=== PATIENT | male | born 1970 ===

== ENCOUNTER 2017-09-09 21:49 | Emergency (ER) | payer MEDICARE ==
--- NOTE | 2017-09-09 21:52 | ED PDOC ---
Arrival/HPI - General Time Seen by Provider: 09/09/17 21:51 Historian: Patient - History of Present Illness Narrative History of Present Illness (Text): 09/09/17 21:52 47 year old male, whose past medical history includes substance abuse(heroin), right prosthetic eye, and Hepatitis C, presents to the Emergency department by ambulance and [facility] foropioid overdose 2 hours ago. As per EMS, patient reportedly sniffed heroin intranasally. Prior to arrival, patient was shaking, but became responsive after Narcan was administered by EMS. Patient reports a history of seizures when he was younger. Patient denies any other drug or alcohol use. Patient denies any tongue biting, fevers, chills, chest pain, shortness of breath, abdominal pain, nausea, vomiting, diarrhea, back pain, neck pain, urinary incontinence, urinary symptoms, headache, dizziness, or any other complaint. Time/Duration: Other (2 hours) Symptom Onset: Gradual Activities at Onset: Light Past Medical History - Provider Review Nursing Documentation Reviewed: Yes - Cardiac Hx Hypertension: No - Pulmonary Hx Tuberculosis: No (Patient denied) - Neurological Hx Seizures: No - HEENT Hx Blind: Yes (R eye (prosthetic)) - Hematological/Oncological Hx Cancer: No (Patient denied) - Musculoskeletal/Rheumatological Hx Falls: No - Genitourinary/Gynecological Hx Sexually Transmitted Diseases: No - Psychiatric Hx Substance Use: Yes - Surgical History Other/Comment: R eye enucleation - Anesthesia Hx Anesthesia: Yes Hx Anesthesia Reactions: No Family/Social History - Physician Review Nursing Documentation Reviewed: Yes Family/Social History: No Known Family HX Smoking Status: Heavy Smoker > 10 Cigarettes Daily Hx Alcohol Use: No Hx Substance Use: Yes Substance used: heroin Allergies/Home Meds Allergies/Adverse Reactions: Allergies No Known Allergies Allergy (Verified 09/09/17 21:58) Review of Systems - Physician Review All systems were reviewed & negative as marked: Yes - Review of Systems Constitutional: absent: Fevers, Other (Chills) ENT: absent: Other (tongue biting) Respiratory: absent: SOB Cardiovascular: absent: Chest Pain Gastrointestinal: absent: Diarrhea, Nausea, Vomiting Genitourinary Male: absent: Dysuria, Frequency, Hematuria, Other (urinary incontinence) Musculoskeletal: absent: Back Pain, Neck Pain Neurological: Seizure. absent: Headache, Dizziness Physical Exam Vital Signs Reviewed: Yes Vital Signs Pulse Resp BP Pulse Ox 09/09/17 21:59 110 H 19 145/98 H 100 Temperature: Afebrile Blood Pressure: Normal Pulse: Tachycardic Respiratory Rate: Normal Appearance: Positive for: Well-Appearing, Non-Toxic, Comfortable Pain Distress: None Mental Status: Positive for: Alert and Oriented X 3 - Systems Exam Head: Present: Atraumatic, Normocephalic Pupils: Present: Non-Reactive (Right eye non-reactive pupil. (Glass eye)), Other (Left eye reactive) Extroacular Muscles: Present: EOMI Conjunctiva: Present: Normal Mouth: Present: Moist Mucous Membranes, Other (No tongue biting) Pharnyx: Present: Normal. No: ERYTHEMA Neck: Present: Normal Range of Motion Respiratory/Chest: Present: Clear to Auscultation, Good Air Exchange. No: Respiratory Distress, Accessory Muscle Use Cardiovascular: Present: Regular Rate and Rhythm, Normal S1, S2. No: Murmurs Abdomen: No: Tenderness, Distention, Peritoneal Signs Back: Present: Normal Inspection Upper Extremity: Present: Normal Inspection. No: Cyanosis, Edema Lower Extremity: Present: Normal Inspection. No: Edema Neurological: Present: GCS=15, CN II-XII Intact, Speech Normal, Motor Func Grossly Intact, Normal Sensory Function Skin: Present: Warm, Dry, Normal Color. No: Rashes Psychiatric: Present: Alert, Oriented x 3, Normal Insight, Normal Concentration Medical Decision Making ED Course and Treatment: 09/09/17 21:52 Impression: 47 year old male presents for opioid overdose. Patient was noticed to be shaking with decorticate posturing prior to arrival. Differential Diagnosis included but are not limited to: Opioid overdose Plan: -- CT Head w/o Contrast -- Labs -- Reassess and disposition Progress Notes: 09/09/17 23:53 Patient was placed on PO potassium chloride. EXAM:CT Head Without Intravenous Contrast Dictated and Authenticated by: Jamey Urbina MD 09/09/2017 11:23 PM IMPRESSION: Normal head/brain CT. 09/09/17 23:58 On re-evaluation, patient denies any repository distress with no current seizure activity. Patient states he wants to go home. Patient feels better and is in no acute distress. I have discussed the results and plan with the patient , who expresses understanding. Patient in agreement with plan to be discharged home. Patient is stable for discharge. Patient was instructed to follow up with physician or return if symptoms worsen or new concerning symptoms arise. - Lab Interpretations Lab Results: 09/09/17 22:06 09/09/17 22:06 Lab Results 09/09/17 22:06: Alcohol, Quantitative < 10 09/09/17 22:06: Salicylates < 1 L, Acetaminophen < 10.0 L 09/09/17 22:06: Sodium 143, Potassium 3.1 L, Chloride 101, Carbon Dioxide 25, Anion Gap 20, BUN 14, Creatinine 1.3, Est GFR ( Amer) > 60, Est GFR (Non- Af Amer) 60, Random Glucose 243 H, Calcium 8.9, Magnesium 2.0, Total Bilirubin 0.3, AST 39, ALT 37, Alkaline Phosphatase 67, Total Protein 7.8, Albumin 4.5, Globulin 3.3, Albumin/Globulin Ratio 1.3 09/09/17 22:06: WBC 14.0 H, RBC 4.37, Hgb 13.3 L, Hct 38.6 L, MCV 88.3, MCH 30.4 , MCHC 34.5, RDW 12.5, Plt Count 265, MPV 9.4, Gran % 35.5 L, Lymph % (Auto) 57.8 H, Cloud % (Auto) 5.9, Eos % (Auto) 0.6 L, Baso % (Auto) 0.2, Gran # 4.98, Lymph # (Auto) 8.1 H, Cloud # (Auto) 0.8 H, Eos # (Auto) 0.1, Baso # (Auto) 0.03 I have reviewed the lab results: Yes - RAD Interpretation Radiology Orders: 09/09/17 21:54 HEAD W/O CONTRAST [CT] Stat - Medication Orders Current Medication Orders: Discontinued Medications Potassium Chloride (K-Dur 20 Meq Er Tab) 40 meq PO STAT STA Stop: 09/09/17 22:28 Last Admin: 09/09/17 23:59 Dose: 40 meq - Scribe Statement The provider has reviewed the documentation as recorded by the Camronibshey Serna Provider Scribe Attestation: All medical record entries made by the Camronibshey were at my direction and personally dictated by me. I have reviewed the chart and agree that the record accurately reflects my personal performance of the history, physical exam, medical decision making, and the department course for this patient. I have also personally directed, reviewed, and agree with the discharge instructions and disposition. Disposition/Present on Arrival - Present on Arrival Any Indicators Present on Arrival: No History of DVT/PE: No History of Uncontrolled Diabetes: No Urinary Catheter: No History Surgical Site Infection Following: None - Disposition Have Diagnosis and Disposition been Completed?: Yes Diagnosis: Opiate overdose, Hypokalemia Disposition: HOME/ ROUTINE Disposition Time: 23:58 Patient Plan: Discharge Patient Problems: Current Active Problems Problem Status Onset Opiate overdose Acute Hypokalemia Acute Condition: IMPROVED Discharge Instructions (ExitCare): Hypokalemia, Narcotic Overdose Additional Instructions: Mr Manuel, thank you for letting us take care of you today. Your provider was Dr. Bonilla. You were treated for Opiate Overdose, Hypokalemia. The emergency medical care you received today was directed at your acute symptoms. If you were prescribed any medication, please fill it and take as directed. It may take several days for your symptoms to resolve. Return to the Emergency Department if your symptoms worsen, do not improve, or if you have any other problems. Please contact your doctor or call one of the physicians/clinics you have been referred to that are listed on the Patient Visit Information form that is included in your discharge packet. Bring any paperwork you were given at discharge with you along with any medications you are taking to your follow up visit. Our treatment cannot replace ongoing medical care by a primary care provider (PCP) outside of the emergency department. Thank you for allowing the [facility] team to be part of your care today. If you had an X-Ray or CT scan: A Radiologist will review the ED reading if any change in treatment is needed we will contact you. If you had a blood, urine, or wound culture: It will take several days for the results, if any change in treatment is needed we will contact you. If you had an STI test: It will take 48 hours for the results. Please call after 1 week if you have not heard back. Referrals: [facility] [Outside] - Follow up with primary [facility] Re[facility], [Primary Care Provider] - Follow up with primary Forms: WORK NOTE
[2017-09-09 22:03] VITALS: O2SAT 100; BMI 24.3
[2017-09-09 22:14] LABS: BASO # 0.03 K/mm3 (0.0-2.0); BASO % 0.2 % (0.0-3.0); EOS # 0.1 (0.0-0.7); EOS % 0.6 % (1.5-5.0); GRAN # 4.98 (1.4-6.5); GRAN % 35.5 % (50.0-68.0); HEMOGLOBIN 13.3 g/dL (14.0-18.0); LYMPH # 8.1 (1.2-3.4); LYMPH % 57.8 % (22.0-35.0); MEAN CELL VOLUME 88.3 fl (80.0-105.0); MEAN CORPUSCULAR HEMOGLOBIN 30.4 pg (25.0-35.0); MEAN CORPUSCULAR HGB CONC 34.5 g/dl (31.0-37.0); MEAN PLATELET VOLUME 9.4 fl (7.0-11.0); MONO # 0.8 (0.1-0.6); MONO % 5.9 % (1.0-6.0); RBC 4.37 10^6/uL (3.5-6.1); RED CELL DISTRIBUTION WIDTH 12.5 % (11.5-14.5)
[2017-09-09 22:24] LABS: ACETAMINOPHEN < 10.0 ug/ml (10.0-20.0); SALICYLATE < 1 mg/dL (2.0-20.0)
[2017-09-09 22:26] LABS: ALB/GLOB RATIO 1.3 (1.1-1.8); ALBUMIN 4.5 g/dL (3.0-4.8); ALT/SGPT 37 U/L (7-56); AST/SGOT 39 U/L (17-59); BLOOD UREA NITROGEN 14 mg/dL (7-21); CALCIUM 8.9 mg/dL (8.4-10.5); GFR AFRICAN-AMERICAN > 60; GFR NON-AFRICAN AMERICAN 60
[2017-09-09] MEDS ORDERED: Potassium Chloride 20 mEq ER Tab PO STA (22:27)
[2017-09-10 03:36] VITALS: BP 135/85; PULSE 88; RESP 18
--- NOTE | 2017-09-10 08:39 | CT ---
PROCEDURE: CT HEAD WITHOUT CONTRAST. HISTORY: possible sz COMPARISON: None available. TECHNIQUE: Axial computed tomography images were obtained through the head/brain without intravenous contrast. Radiation dose: Total exam DLP = 945 mGy-cm. This CT exam was performed using one or more of the following dose reduction techniques: Automated exposure control, adjustment of the mA and/or kV according to patient size, and/or use of iterative reconstruction technique. FINDINGS: HEMORRHAGE: No intracranial hemorrhage. BRAIN: No mass effect or edema. No atrophy or chronic microvascular ischemic changes. VENTRICLES: Unremarkable. No hydrocephalus. CALVARIUM: Unremarkable. PARANASAL SINUSES: Unremarkable as visualized. No significant inflammatory changes. MASTOID AIR CELLS: Unremarkable as visualized. No inflammatory changes. OTHER FINDINGS: None. IMPRESSION: Normal CT of the Head. Concordant results (preliminary interpretation) provided by [facility].
== END 2017-09-09 23:55 | disposition home or self-care (01) ==
LOC: ED 21:49
DX: T40.601A Poisoning by unspecified narcotics, accidental (unintentional), initial encounter (principal); E87.6 Hypokalemia; F17.210 Nicotine dependence, cigarettes, uncomplicated
CPT/HCPCS: 70450; 80053; 83735; 85025; 99283; G0480